=== PATIENT | female | born 1965 | race Caucasian/White ===

== ENCOUNTER 2017-07-29 15:57 | Inpatient (IN) | payer BC, OTHER ==
[~2017-07-29] VITALS: Ht 152.4 cm; Wt 64.4 kg
[2017-07-29 19:53] LABS: *URINE HCG, QUAL NEGATIVE (NEGATIVE)
[2017-07-29 20:01] LABS: *AMPHETAMINE, URINE NEGATIVE (NEGATIVE); *BARBITURATE, URINE NEGATIVE (NEGATIVE); *CANNABINOID, URINE POSITIVE (NEGATIVE); *COCCAINE, URINE NEGATIVE (NEGATIVE); *OPIATE, URINE NEGATIVE (NEGATIVE); *PHENCYCLIDINE SCREEN,URINE NEGATIVE (NEGATIVE)
[2017-07-29] MEDS ORDERED: POLY30DR OP (21:02)
[2017-07-29] MEDS ORDERED: RANI150T8 PO (21:02)
[2017-07-29] MEDS ORDERED: LINA290C PO (21:02)
[2017-07-29] MEDS ORDERED: LISI-603 PO (21:02)
[2017-07-29] MEDS ORDERED: ALBU8.5H8 INH (21:02)
[2017-07-29] MEDS ORDERED: ASPI-605 PO (21:02)
[2017-07-29] MEDS ORDERED: LIDOCAINE (21:02)
[2017-07-29] MEDS ORDERED: ALPR2TAB7 PO (21:02)
[2017-07-29] MEDS ORDERED: BENZ9GEL3 MM (21:02)
[2017-07-29] MEDS ORDERED: NIFE30TA89 PO (21:02)
[2017-07-29] MEDS ORDERED: HYDR50CA PO (21:02)
[2017-07-29] MEDS ORDERED: ACETAMINOPHEN 325 MG TABLET PO PRN (22:30)
[2017-07-29] MEDS ORDERED: LORAZEPAM 1 MG TABLET PO SCH (22:30)
[2017-07-29] MEDS ORDERED: NICOTINE 14 MG/24HR PATCH TD PRN (22:30)
[2017-07-29] MEDS ORDERED: BUPRENORPHINE HCL 2 MG TAB.SUBL SL PRN (22:30)
[2017-07-29] MEDS ORDERED: DICYCLOMINE HCL 20 MG TABLET PO PRN (22:30)
[2017-07-29] MEDS ORDERED: LOPERAMIDE HCL 2 MG CAPSULE PO PRN ×2 (22:30)
[2017-07-29] MEDS ORDERED: DOCUSATE SODIUM 250 MG CAPSULE PO PRN (22:30)
[2017-07-29] MEDS ORDERED: MAG HYDROX/AL HYDROX/SIMETH 30 ML LIQUID UDC PO PRN (22:30)
[2017-07-29] MEDS ORDERED: METHOCARBAMOL 750 MG TABLET PO PRN (22:30)
[2017-07-29] MEDS ORDERED: LORAZEPAM 1 MG TABLET PO PRN ×2 (22:30)
[2017-07-29] MEDS ORDERED: diphenhydrAMINE 50 MG CAPSULE PO PRN (22:30)
[2017-07-29] MEDS ORDERED: LORAZEPAM 2 MG/1 ML VIAL IM PRN (22:30)
[2017-07-29] MEDS ORDERED: NICOTINE POLACRILEX 4 MG GUM-PK OF TEN BC PRN (22:30)
[2017-07-29] MEDS ORDERED: MAGNESIUM HYDROXIDE 30 ML LIQUID UDC PO PRN (22:30)
[2017-07-29] MEDS ORDERED: MIRALAX 17 GM POWD.PACK PO PRN (22:30)
[2017-07-29 23:58] LABS: BASOPHILS # (AUTO) 0.1 K/uL (0.0-8.0); BASOPHILS % (AUTO) 1.4 % (0.0-2.0); EOSINOPHILS # (AUTO) 0.2 K/uL (0.0-0.7); EOSINOPHILS % (AUTO) 2.8 % (0.0-7.0); HEMATOCRIT 41.3 % (31.2-41.9); HEMOGLOBIN 13.9 g/dL (10.9-14.3); LYMPHOCYTES # (AUTO) 2.5 K/uL (20.0-40.0); LYMPHOCYTES % (AUTO) 31.5 % (20.5-51.5); MEAN CORPUSCULAR HEMOGLOBIN 31.6 uug (24.7-32.8); MEAN CORPUSCULAR HGB CONC 34 g/dL (32.3-35.6); MEAN CORPUSCULAR VOLUME 94.1 fL (75.5-95.3); MONOCYTES # (AUTO) 0.9 K/uL (2.0-10.0); MONOCYTES % (AUTO) 11.6 % (0.0-11.0); NEUTROPHILS # (AUTO) 4.3 K/uL (1.8-8.9); NEUTROPHILS % (AUTO) 52.7 % (38.5-71.5); PLATELET COUNT (AUTO) 240 K/uL (179-408); RED BLOOD CELL COUNT(AUTO) 4.39 MIL/uL (3.63-4.92); WHITE BLOOD COUNT (AUTO) 8.1 K/uL (3.8-11.8)
[2017-07-30] VITALS (7 sets, daily range): BP systolic 138–169; BP diastolic 75–108
[2017-07-30] MEDS: IBUPROFEN 600 MG TABLET PO PRN ×2 (00:10→19:40)
[2017-07-30] MEDS: CLONIDINE HCL 0.1 MG TABLET PO PRN ×3 (00:10→19:40)
[2017-07-30 00:15] LABS: ALANINE AMINOTRANSFERASE 44 U/L (14-59); ALKALINE PHOSPHATASE 52 U/L (50-136); ASPARTATE AMINOTRANSFERASE 52 U/L (15-37); BILIRUBIN,TOTAL 0.3 mg/dL (0.2-1.0); CARBON DIOXIDE 34 mmol/L (21-32); CHLORIDE 102 mmol/L (98-107); CREATININE 0.7 mg/dL (0.6-1.3); GLUCOSE 100 mg/dL (74-106); MAGNESIUM 1.6 mg/dL (1.8-2.4); POTASSIUM 3.7 mmol/L (3.5-5.1); TOTAL PROTEIN, SERUM 7.2 g/dL (6.4-8.2); UREA NITROGEN, BLOOD 11 mg/dL (7-18)
[2017-07-30 00:18] LABS: ETHANOL < 3 MG/DL (0-0)
[2017-07-30 01:05] LABS: THYROID STIMULATING HORMONE 2.958 mIU/mL (0.358-3.740)
[2017-07-30] MEDS: ALBUTEROL SULFATE 2.5 MG/3 ML NEBU NEB PRN ×2 (07:43→19:39)
[2017-07-30] MEDS: LORAZEPAM 1 MG TABLET PO SCH ×4 (08:24→20:55)
[2017-07-30] MEDS: BUPRENORPHINE HCL 2 MG TAB.SUBL SL SCH ×4 (08:25→20:56)
[2017-07-30] MEDS ORDERED: MAGNESIUM OXIDE 400 MG TABLET PO ONE (09:00)
[2017-07-30] MEDS ORDERED: TUBERCULIN,PURIF.PROT.DERIV. 5 TU/0.1 ML TEST ID ONE (09:00)
[2017-07-30] MEDS: RANITIDINE 150 MG PO SCH (09:31)
[2017-07-30] MEDS: BENZOCAINE TOP PRN ×2 (09:31→16:32)
[2017-07-31] VITALS: BP 137/86
[2017-07-31] MEDS: ALBUTEROL SULFATE 2.5 MG/3 ML NEBU NEB PRN ×3 (04:05→20:44)
[2017-07-31 08:00] VITALS: BP 137/82
[2017-07-31] MEDS: LORAZEPAM 1 MG TABLET PO SCH ×3 (08:57→21:04)
[2017-07-31] MEDS: BENZOCAINE TOP PRN (08:58)
[2017-07-31] MEDS: RANITIDINE 150 MG PO SCH (08:58)
[2017-07-31] MEDS: BUPRENORPHINE HCL 2 MG TAB.SUBL SL SCH ×3 (08:59→21:04)
[2017-07-31] MEDS: ONDANSETRON 4 MG/2 ML VIAL IM PRN ×2 (11:14→23:55)
[2017-07-31 12:00] VITALS: BP 125/74
[2017-07-31] MEDS ORDERED: LORAZEPAM 1 MG TABLET PO PRN ×2 (12:30)
[2017-07-31] MEDS ORDERED: hydrALAZINE HCL 50 MG TABLET PO PRN (12:30)
[2017-07-31 13:06] LABS: HEPATITIS B SURFACE AG Negative (Negative)
[2017-07-31] MEDS: QUETIAPINE FUMARATE 25 MG TABLET PO PRN (14:22)
[2017-07-31 16:00] VITALS: BP 136/78
[2017-07-31 20:00] VITALS: BP 142/74
[2017-07-31] MEDS: GABAPENTIN 300 MG CAPSULE PO SCH (21:04)
[2017-07-31] MEDS: IBUPROFEN 600 MG TABLET PO PRN (21:04)
[2017-07-31] MEDS: ONDANSETRON ODT 4 MG TAB.RAPDIS SL PRN (21:05)
[2017-08-01] VITALS: BP 138/96
[2017-08-01 04:00] VITALS: BP 128/81
[2017-08-01 08:00] VITALS: BP 133/88
[2017-08-01] MEDS: GABAPENTIN 300 MG CAPSULE PO SCH ×3 (08:24→20:19)
[2017-08-01] MEDS: BENZOCAINE TOP PRN (08:24)
[2017-08-01] MEDS: RANITIDINE 150 MG PO SCH (08:25)
[2017-08-01] MEDS ORDERED: LORAZEPAM 1 MG TABLET PO SCH ×2 (09:00→21:00)
[2017-08-01] MEDS ORDERED: BUPRENORPHINE HCL 2 MG TAB.SUBL SL SCH ×2 (09:00→15:00)
[2017-08-01] MEDS: ALBUTEROL SULFATE 2.5 MG/3 ML NEBU NEB PRN ×2 (10:27→21:47)
[2017-08-01] MEDS: ONDANSETRON ODT 4 MG TAB.RAPDIS SL PRN (11:17)
[2017-08-01] MEDS ORDERED: KETOROLAC TROMETHAMINE 30 MG INJ IM PRN (11:45)
[2017-08-01 12:00] VITALS: BP 135/87
[2017-08-01] MEDS: LORAZEPAM 1 MG TABLET PO SCH ×2 (12:55→16:37)
[2017-08-01] MEDS: QUETIAPINE FUMARATE 25 MG TABLET PO PRN (12:55)
[2017-08-01] MEDS: BUPRENORPHINE HCL 2 MG TAB.SUBL SL SCH ×3 (12:56→20:19)
[2017-08-01] MEDS: DICYCLOMINE HCL 20 MG TABLET PO SCH ×2 (14:39→20:19)
[2017-08-01 16:00] VITALS: BP 142/95
[2017-08-01 20:00] VITALS: BP 144/96
[2017-08-01] MEDS: BACLOFEN 10 MG TABLET PO SCH (20:18)
[2017-08-01] MEDS: CLONIDINE HCL 0.1 MG TABLET PO SCH (20:18)
[2017-08-02] VITALS (9 sets, daily range): BP systolic 108–158; BP diastolic 73–101
[2017-08-02] MEDS: DICYCLOMINE HCL 20 MG TABLET PO SCH ×3 (09:00→21:20)
[2017-08-02] MEDS: BACLOFEN 10 MG TABLET PO SCH ×3 (09:00→21:22)
[2017-08-02] MEDS ORDERED: LORAZEPAM 1 MG TABLET PO SCH ×3 (09:00→21:00)
[2017-08-02] MEDS: BUPRENORPHINE HCL 2 MG TAB.SUBL SL SCH ×3 (09:00→21:20)
[2017-08-02] MEDS: GABAPENTIN 300 MG CAPSULE PO SCH ×3 (09:02→21:21)
[2017-08-02] MEDS: CLONIDINE HCL 0.1 MG TABLET PO SCH ×3 (09:03→21:21)
[2017-08-02] MEDS: RANITIDINE 150 MG PO SCH (09:03)
[2017-08-02] MEDS: ALBUTEROL SULFATE 2.5 MG/3 ML NEBU NEB PRN (12:15)
[2017-08-02] MEDS: ONDANSETRON ODT 4 MG TAB.RAPDIS SL PRN (12:39)
[2017-08-02] MEDS: CLONIDINE HCL 0.1 MG TABLET PO PRN (13:08)
[2017-08-02] MEDS: HYDROXYZINE PAMOATE 25 MG CAPSULE PO PRN (13:59)
[2017-08-03] VITALS: BP 121/74
[2017-08-03 04:00] VITALS: BP_SYST 106; BP_SYST 125; BP_DIAS 59; BP_DIAS 77
[2017-08-03] MEDS: ALBUTEROL SULFATE 2.5 MG/3 ML NEBU NEB PRN ×3 (04:34→21:39)
[2017-08-03 08:00] VITALS: BP 109/85
[2017-08-03] MEDS: RANITIDINE 150 MG PO SCH (08:58)
[2017-08-03] MEDS: BACLOFEN 10 MG TABLET PO SCH ×3 (09:00→20:57)
[2017-08-03] MEDS: CLONIDINE HCL 0.1 MG TABLET PO SCH ×3 (09:00→20:57)
[2017-08-03] MEDS: LORAZEPAM 1 MG TABLET PO SCH ×2 (09:00→20:56)
[2017-08-03] MEDS: GABAPENTIN 300 MG CAPSULE PO SCH ×3 (09:01→20:57)
[2017-08-03] MEDS: DICYCLOMINE HCL 20 MG TABLET PO SCH ×3 (09:01→20:56)
[2017-08-03] MEDS: BUPRENORPHINE HCL 2 MG TAB.SUBL SL SCH ×2 (09:03→21:01)
[2017-08-03 12:00] VITALS: BP 121/68
[2017-08-03] MEDS: QUETIAPINE FUMARATE 25 MG TABLET PO PRN ×2 (12:50→22:20)
[2017-08-03] MEDS ORDERED: CLON0.1T14 PO (13:33)
[2017-08-03] MEDS ORDERED: NIFE30TA89 PO (13:33)
[2017-08-03] MEDS ORDERED: METH-406 PO (13:33)
[2017-08-03] MEDS ORDERED: GABA-534 PO ×2 (13:33)
[2017-08-03] MEDS ORDERED: HYDR-3895 PO (13:33)
[2017-08-03] MEDS ORDERED: IBUP-1955 PO (13:33)
[2017-08-03] MEDS ORDERED: DICY20TA28 PO (13:33)
[2017-08-03] MEDS ORDERED: QUET25TA PO (13:33)
[2017-08-03 16:00] VITALS: BP 125/86
[2017-08-03 20:00] VITALS: BP 115/72
[2017-08-03] MEDS ORDERED: LORAZEPAM 1 MG TABLET PO ONE (23:00)
[2017-08-04] VITALS: BP 132/81
[2017-08-04] MEDS: QUETIAPINE FUMARATE 25 MG TABLET PO PRN ×3 (01:30→20:43)
[2017-08-04 04:00] VITALS: BP 148/85
[2017-08-04] MEDS: HYDROXYZINE PAMOATE 25 MG CAPSULE PO PRN (04:25)
[2017-08-04] MEDS: CLONIDINE HCL 0.1 MG TABLET PO PRN (04:28)
[2017-08-04 08:00] VITALS: BP 122/66
[2017-08-04] MEDS ORDERED: BUPRENORPHINE HCL 2 MG TAB.SUBL SL SCH (09:00)
[2017-08-04] MEDS ORDERED: LORAZEPAM 1 MG TABLET PO SCH (09:00)
[2017-08-04] MEDS ORDERED: QUETIAPINE FUMARATE 25 MG TABLET PO PRN (09:00)
[2017-08-04] MEDS: BACLOFEN 10 MG TABLET PO SCH ×3 (09:44→20:44)
[2017-08-04] MEDS: CLONIDINE HCL 0.1 MG TABLET PO SCH ×3 (09:44→20:46)
[2017-08-04] MEDS: DICYCLOMINE HCL 20 MG TABLET PO SCH ×3 (09:44→20:44)
[2017-08-04] MEDS: RANITIDINE 150 MG PO SCH (09:45)
[2017-08-04] MEDS: GABAPENTIN 300 MG CAPSULE PO SCH ×3 (09:47→20:45)
[2017-08-04] MEDS: ALBUTEROL SULFATE 2.5 MG/3 ML NEBU NEB PRN ×2 (10:53→21:58)
[2017-08-04 12:00] VITALS: BP 122/66
[2017-08-04 16:00] VITALS: BP 112/81
[2017-08-04 20:00] VITALS: BP 138/95
[2017-08-04] MEDS ORDERED: HYDROXYZINE PAMOATE 25 MG CAPSULE PO ONE (23:15)
[2017-08-05 05:50] VITALS: BP 155/94
[2017-08-05] MEDS: CLONIDINE HCL 0.1 MG TABLET PO PRN (05:54)
[2017-08-05] MEDS: ALBUTEROL SULFATE 2.5 MG/3 ML NEBU NEB PRN (05:57)
[2017-08-05 06:54] VITALS: BP 136/87
[2017-08-05 08:16] VITALS: BP 137/80
[2017-08-05 08:19] VITALS: BP 137/80
[2017-08-05] MEDS: BACLOFEN 10 MG TABLET PO SCH (08:19)
[2017-08-05] MEDS: CLONIDINE HCL 0.1 MG TABLET PO SCH (08:19)
[2017-08-05] MEDS: GABAPENTIN 300 MG CAPSULE PO SCH (08:19)
[2017-08-05] MEDS: DICYCLOMINE HCL 20 MG TABLET PO SCH (08:19)
[2017-08-05] MEDS: RANITIDINE 150 MG PO SCH (08:20)
== END 2017-08-05 09:25 | DRG 895 ==
LOC: SRC 19:12
PROVIDERS: ADMIT Internal Medicine; ATTEND Internal Medicine
PROC: HZ2ZZZZ Detoxification Services for Substance Abuse Treatment (ICD-10-PCS; principal; 2017-07-29)
PROC: HZ31ZZZ Individual Counseling for Substance Abuse Treatment, Behavioral (ICD-10-PCS; 2017-07-31)
PROC: HZ41ZZZ Group Counseling for Substance Abuse Treatment, Behavioral (ICD-10-PCS; 2017-08-03)
DX: F13.232 Sedative, hypnotic or anxiolytic dependence with withdrawal with perceptual disturbance (principal); E87.3 Alkalosis; I15.9 Secondary hypertension, unspecified; E83.42 Hypomagnesemia; J43.9 Emphysema, unspecified; F11.23 Opioid dependence with withdrawal; F31.9 Bipolar disorder, unspecified; F12.10 Cannabis abuse, uncomplicated; Z81.8 Family history of other mental and behavioral disorders; Z86.73 Personal history of transient ischemic attack (TIA), and cerebral infarction without residual deficits; Z81.1 Family history of alcohol abuse and dependence; Z91.89 Other specified personal risk factors, not elsewhere classified; F41.9 Anxiety disorder, unspecified; F17.210 Nicotine dependence, cigarettes, uncomplicated; E86.0 Dehydration; B19.20 Unspecified viral hepatitis C without hepatic coma
CPT/HCPCS: 36415; 70030-TC; 80307; 80346; 80349; 83735; 84443; 84703; 85025; 86580; 86592; 86705; 86803; 87340; 87806; 94640; 94664; A4663; G0480; J2405; Q0162